=== PATIENT | female | born 1980 | race Caucasian/White ===

== ENCOUNTER → 2019-05-14 | Outpatient (CLI) | payer OTHER ==
--- NOTE | 2019-05-14 11:47 | WOMENS IMAGING REPORT ---
EXAM DESCRIPTION: BILAT DIAGNOSTIC MAMMO W/CAD; U/S BREAST UNILAT LIMITED COMPLETED DATE/TIME: 05/14/2019 9:34 am; 05/14/2019 10:04 am REASON FOR STUDY: N63.11 BILAT DX; N63.11 RIGHT BREAST N63.11 UNSPECIFIED LUMP IN THE RIGHT BREAST, UPPER OUTER CRESCENCIO . Palpable lump in the right breast. History of bilateral breast implants. COMPARISON: None. Baseline exam. EXAM PARAMETERS: Standard craniocaudal and mediolateral oblique views of each breast recorded using digital acquisition. Additional spot compression images of the area palpable concern were also obtained. Read with the assistance of CAD: .[employer] Supervisor Version 9.2 LIMITATIONS: None. FINDINGS: RIGHT BREAST MASSES: There is a 5 mm partially obscured mass in the area palpable concern in the right breast. CALCIFICATIONS: Scattered benign-appearing calcifications. ARCHITECTURAL DISTORTION: None. ASYMMETRY: None noted. OTHER: Right breast implant is mammographically intact. LEFT BREAST MASSES: No suspicious masses. CALCIFICATIONS: Scattered benign appearing calcifications. ARCHITECTURAL DISTORTION: None. ASYMMETRY: None noted. OTHER: Left breast implant is mammographically intact. The patient was taken ultrasound for further evaluation of palpable area of concern. At the 10-11 o' clock position subareolar region, there is a small anechoic cyst measuring 4 mm. This corresponds to the palpable area of concern. Partial visualization of the underlying implant. IMPRESSION: Benign cyst corresponds to the palpable area concern. There is no mammographic or sonog raphic evidence of malignancy. Recommend annual routine screening mammography. BREAST DENSITY: b. There are scattered areas of fibroglandular density. BIRAD: ASSESSMENT: 2 Benign findings. RECOMMENDATION: RECOMMENDED FOLLOW UP: Birads 1 or 2: The patient should resume routine screening . SPECIFIC INTERVENTION/IMAGING/CONSULTATION RECOMMENDED:No additional intervention/ imaging/consultati on needed at this time. COMMUNICATION:No significant abnormalities to discuss with the patient today. COMMENT: The patient has been notified of the results by letter per MQSA requirements. Additional no tification policies are in place for contacting patient with suspicious or incomplete findings. Quality ID #225: The [employer] recommends an annual screening mammogram for women aged 40 years or over. This facility utilizes a reminder system to ensure that all patients receive reminder letters, and/or direct phone calls for appointments. This includes reminders for routine scr eening mammograms, diagnostic mammograms, or other Breast Imaging Interventions when appropriate. Th is patient will be placed in the appropriate reminder system. TECHNICAL DOCUMENTATION: FINDING NUMBER: (1) ASSESSMENT: (1) JOB ID: [id number] [employer]- All Rights Reserved Reading location - IP/workstation name: [email or web address]
--- NOTE | 2019-05-14 11:47 | WOMENS IMAGING REPORT ---
EXAM DESCRIPTION: BILAT DIAGNOSTIC MAMMO W/CAD; U/S BREAST UNILAT LIMITED COMPLETED DATE/TIME: 05/14/2019 9:34 am; 05/14/2019 10:04 am REASON FOR STUDY: N63.11 BILAT DX; N63.11 RIGHT BREAST N63.11 UNSPECIFIED LUMP IN THE RIGHT BREAST, UPPER OUTER CRESCENCIO . Palpable lump in the right breast. History of bilateral breast implants. COMPARISON: None. Baseline exam. EXAM PARAMETERS: Standard craniocaudal and mediolateral oblique views of each breast recorded using digital acquisition. Additional spot compression images of the area palpable concern were also obtained. Read with the assistance of CAD: .[employer] Nursery Specialist Version 9.2 LIMITATIONS: None. FINDINGS: RIGHT BREAST MASSES: There is a 5 mm partially obscured mass in the area palpable concern in the right breast. CALCIFICATIONS: Scattered benign-appearing calcifications. ARCHITECTURAL DISTORTION: None. ASYMMETRY: None noted. OTHER: Right breast implant is mammographically intact. LEFT BREAST MASSES: No suspicious masses. CALCIFICATIONS: Scattered benign appearing calcifications. ARCHITECTURAL DISTORTION: None. ASYMMETRY: None noted. OTHER: Left breast implant is mammographically intact. The patient was taken ultrasound for further evaluation of palpable area of concern. At the 10-11 o' clock position subareolar region, there is a small anechoic cyst measuring 4 mm. This corresponds to the palpable area of concern. Partial visualization of the underlying implant. IMPRESSION: Benign cyst corresponds to the palpable area concern. There is no mammographic or sonog raphic evidence of malignancy. Recommend annual routine screening mammography. BREAST DENSITY: b. There are scattered areas of fibroglandular density. BIRAD: ASSESSMENT: 2 Benign findings. RECOMMENDATION: RECOMMENDED FOLLOW UP: Birads 1 or 2: The patient should resume routine screening . SPECIFIC INTERVENTION/IMAGING/CONSULTATION RECOMMENDED:No additional intervention/ imaging/consultati on needed at this time. COMMUNICATION:No significant abnormalities to discuss with the patient today. COMMENT: The patient has been notified of the results by letter per MQSA requirements. Additional no tification policies are in place for contacting patient with suspicious or incomplete findings. Quality ID #225: The [employer] recommends an annual screening mammogram for women aged 40 years or over. This facility utilizes a reminder system to ensure that all patients receive reminder letters, and/or direct phone calls for appointments. This includes reminders for routine scr eening mammograms, diagnostic mammograms, or other Breast Imaging Interventions when appropriate. Th is patient will be placed in the appropriate reminder system. TECHNICAL DOCUMENTATION: FINDING NUMBER: (1) ASSESSMENT: (1) JOB ID: [id number] [employer]- All Rights Reserved Reading location - IP/workstation name: [email or web address]
== END ==
LOC: WI 10:05
PROVIDERS: ATTEND Nurse Practitioner Family
DX: N60.02 Solitary cyst of left breast (principal); N63.11 Unspecified lump in the right breast, upper outer quadrant
CPT/HCPCS: 76642; 77066